=== PATIENT | female | born 1985 | race Caucasian/White ===

== ENCOUNTER 2017-12-14 02:16 | Emergency (ER) | payer OTHER ==
[~2017-12-14] VITALS: Ht 162.6 cm; Wt 90.7 kg
[~2017-12-14 02:16] MED LIST: AMOCLA875 PO; HYDACE5; HYDACE5 PO; IBUP800 PO; Naprosyn500 MG PO; ONDA8ODT MM; OXYACE5T; OXYACE5T PO; PRED10 PO; PSEU120ER PO; Prednisone10 MG PO; Prenatal Table1 EAC1 PO; RXCLIN PO; RXOXYACE PO; SULTRIDS PO; Veetids 500500 MG PO
[2017-12-14 02:59] LABS: BASOPHILS ABSOLUTE AUTO 0.04 K/mm3 (0.00-0.23); BASOPHILS PERCENT AUTO 1 % (0-2); EOSINOPHILS ABSOLUTE AUTO 0.37 K/mm3 (0.00-0.68); EOSINOPHILS PERCENT AUTO 4 % (0-6); Hematocrit 37.6 % (33.0-51.0); IMMATURE GRAN ABSOLUTE AUTO 0.03 K/mm3 (0.00-0.10); IMMATURE GRAN PERCENT AUTO 0 % (0-1); LYMPHOCYTES ABSOLUTE AUTO 3.87 K/mm3 (0.84-5.20); LYMPHOCYTES PERCENT AUTO 45 % (21-46); MONOCYTES ABSOLUTE AUTO 0.35 K/mm3 (0.16-1.47); MONOCYTES PERCENT AUTO 4 % (4-13); Mean Corpuscular HGB 36.4 pg (26.0-34.0); Mean Corpuscular HGB Conc 37.2 g/dL (31.5-36.5); Mean Corpuscular Volume 98 fL (80-100); NEUTROPHILS ABSOLUTE AUTO 3.96 K/mm3 (1.96-9.15); NEUTROPHILS PERCENT AUTO 46 % (41-73); Platelet Count 296 K/mm3 (150-400); RDW Coefficient Variation 14.6 % (11.7-14.2); RDW Standard Deviation 42.9 fL (35.1-46.3); Red Blood Cell Count 3.85 M/mm3 (3.80-5.20); White Blood Cell Count 8.62 K/mm3 (4.00-11.30)
[2017-12-14 03:16] LABS: Alanine Aminotransfer (ALT/SGP 87 U/L (12-78); Albumin, Blood 4.3 g/dL (3.4-5.0); Alk Phos 101 U/L (50-136); Anion Gap 12 mmol/L (6-16); Aspartate Aminotrans (AST/SGOT 52 U/L (12-37); Bilirubin, Total 0.4 mg/dL (0.1-1.0); Blood Urea Nitrogen 9 mg/dL (8-24); Bun/Creatinine Ratio 10.7 (12.0-20.0); CO2, Blood 24 mmol/L (21-32); Calcium, Blood 9.2 mg/dL (8.5-10.1); Chloride, Blood 105 mmol/L (98-108); Creatinine, Blood 0.84 mg/dL (0.40-1.00); Globulin, Blood 4.5 g/dL (2.2-4.0); Glomerular Filtration Rate >60 (60-); Glucose, Blood 107 mg/dL (70-99); Potassium, Blood 3.6 mmol/L (3.5-5.5); Sodium, Blood 141 mmol/L (136-145); Total Protein, Blood 8.8 g/dL (6.4-8.2)
[2017-12-14] MEDS ORDERED: Motion Sickness25 M1 PO (05:31)
[2017-12-14] MEDS ORDERED: Zofran Odt4 MG PO (05:31)
[2017-12-14] MEDS ORDERED: Naprosyn500 MG PO (05:31)
== END 2017-12-14 06:06 | disposition home or self-care (01) ==
LOC: ER 02:16
PROVIDERS: Emergency Medicine
DX: R51 Headache (principal); R42 Dizziness and giddiness; R11.2 Nausea with vomiting, unspecified; Z91.030 Bee allergy status; Z90.49 Acquired absence of other specified parts of digestive tract; F17.200 Nicotine dependence, unspecified, uncomplicated
CPT/HCPCS: 70450; 70496; 70498; 80053; 81000; 81025; 83690; 85025; 96361; 96374; 96375; 99284-25; J1170; J1200; J1885; J2405; J2765; J7030; Q9967